=== PATIENT | male | born 1975 | race Caucasian/White ===

== ENCOUNTER 2023-07-06 17:05 | Inpatient (IN) | payer SELFPAY ==
[2023-07-06] VITALS (7 sets, daily range): BP systolic 139–166; BP diastolic 84–118; PULSE 97–111; RESP 18–20; TEMP 36.7–36.8; O2SAT 94–99; BMI 36.6
--- NOTE | 2023-07-06 17:38 | ED.C_ITS ---
HPI - Psych General: Chief Complaint: Psychiatric Symptoms Stated Complaint: SI, ETOH Time Seen by Provider: 07/06/23 17:12 History of Present Illness: Patient presents to the ER with suicidal ideation and a plan. Patient states he just does not want to do it anymore and plans to stab himself in the head. Patient recently quit taking his Effexor cold turkey and his symptoms has became worse. Patient has been treated inpatient before but never through our facility. Review of Systems General: Reports: 10 or more systems reviewed and unremarkable except in HPI and below Physical Exam Const: COMMON NORMALS: no acute distress, average body habitus, patient oriented x3, no limitations, healthy appearing, alert and well nourished HENMT: COMMON NORMALS: normocephalic, atraumatic, hearing grossly normal bilaterally, external ears normal, Normal external nose present, moist oral mucous membranes and oropharynx normal HEAD & SCALP: normocephalic and atraumatic NOSE: Normal external nose present EXTERNAL EAR: Yes external ears normal Neck/C-Spine: COMMON NORMALS: full ROM, no lymphadenopathy, supple, no meningeal signs, no JVD and Thyroid normal THYROID: Thyroid normal Chest: COMMONS NORMALS: normal inspection of the chest and normal palpation of entire chest wall Resp: COMMON NORMALS: normal respiratory effort, No retractions, No use of accessory muscles and clear to auscultation bilaterally AUSCULTATION: clear to auscultation bilaterally Cardio: COMMON NORMALS: no JVD, regular rate, regular rhythm, S1 normal heart sound present, S2 normal heart sound present, No gallops present (Cardio), No clicks present (Cardio) and No murmurs present (Cardio) RATE: regular rate RHYTHM: regular rhythm HEART SOUNDS: S1 normal heart sound present and S2 normal heart sound present Neuro: COMMON NORMALS: patient oriented x3 SENSORIUM/ORIENTATION: Yes alert MENINGEAL SIGNS: Yes no meningeal signs Course Vital Signs: Vital signs: Vital Signs Temperature 98.3 F 07/06/23 17:05 Pulse Rate 104 H 07/06/23 18:10 Respiratory Rate 18 07/06/23 17:05 Blood Pressure 139/84 07/06/23 18:10 Pulse Oximetry 95 07/06/23 18:10 Oxygen Delivery Me thod Room Air 07/06/23 18:10 MDM - Psych Medical Decision Making Patient presented to the ER with suicidal ideation and had been drinking alcohol. As well as quitting his Effexor cold turkey. Patient was worked up in a standard psychiatric fashion. Dr. De Dios was consulted who agreed to take the patient to [facility] for further evaluation and treatment. We will hold the patient down here until we get a repeat alcohol level to make for sure it is stable or improving. Differential Diagnosis Likely suicidal ideation; Unlikely acute psychosis, chronic schizophrenia, bipolar disorder, depression, drug-induced psychotic disorder or acute anxiety Medical Records I reviewed the patient's medical records. Lab Data I reviewed the patient's lab results. 07/06/23 17:53 07/06/23 17:53 Laboratory Results WBC 10.06 10^3/uL (3.29-11.43) 07/06/23 17:53 RBC 5.95 10^6/uL (3.85-5.65) H 07/06/23 17:53 Hgb 17.20 g/dL (11.27-16.99) H 07/06/23 17:53 Hct 52.4 % (37-53) 07/06/23 17:53 MCV 88.1 fl (82-101) 07/06/23 17:53 MCH 28.9 pg (27-33) 07/06/23 17:53 MCHC 32.8 g/dL (30-55) 07/06/23 17:53 RDW 13.8 % (12.1-15.1) 07/06/23 17:53 Plt Count 276 10^3/cmm (157-399) 07/06/23 17:53 MPV 9.3 fL (7.4-10.4) 07/06/23 17:53 Neut % (Auto) 73.9 % 07/06/23 17:53 Lymph % (Auto) 20.1 % 07/06/23 17:53 [place] % (Auto) 4.9 % 07/06/23 17:53 Eos % (Auto) 0.3 % 07/06/23 17:53 Baso % (Auto) 0.6 % 07/06/23 17:53 Neut # (Auto) 7.44 10^3/uL (1.8-7.7) 07/06/23 17:53 Lymph # (Auto) 2.0 10^3/uL (0.8-4.8) 07/06/23 17:53 [place] # (Auto) 0.5 10^3/uL (0.2-0.9) 07/06/23 17:53 Eos # (Auto) 0.0 10^3/uL (0.0-0.8) 07/06/23 17:53 Baso # (Auto) 0.1 10^3/uL (0.0-0.1) 07/06/23 17:53 Nucleated RBC % (auto) 0 % 07/06/23 17:53 Nucleated RBCs # 0.0 /100WBC 07/06/23 17:53 Sodium 142 mmol/L (136-145) 07/06/23 17:53 Potassium 3.4 mmol/L (3.5-5.1) L 07/06/23 17:53 Chloride 103 mmol/L (98-107) 07/06/23 17:53 Carbon Dioxide 22 mmol/L (22-29) 07/06/23 17:53 Anion Gap 20.4 (5-19) H 07/06/23 17:53 BUN 12 mg/dL (6-20) 07/06/23 17:53 Creatinine 0.8 mg/dL (0.7-1.2) 07/06/23 17:53 GFR Calculation 102.3 mL/min (90-130) 07/06/23 17:53 Glucose 114 mg/dL (65-115) 07/06/23 17:53 Calculated Osmolality 295 mOsm/kg (285-295) 07/06/23 17:53 Calcium 8.5 mg/dL (8.5-10.5) 07/06/23 17:53 Total Bilirubin 0.4 mg/dL (0.15-1.2) 07/06/23 17:53 AST 41 U/L (0-40) H 07/06/23 17:53 ALT 50 U/L (0-41) H 07/06/23 17:53 Alkaline Phosphatase 64 U/L (40-130) 07/06/23 17:53 Total Protein 7.5 g/dL (6.6-8.7) 07/06/23 17:53 Albumin 4.0 g/dL (3.5-5.2) 07/06/23 17:53 Globulin 3.5 g/dL (1.3-4.6) 07/06/23 17:53 Urine Color Colorless (Yellow) 07/06/23 17:17 Urine Appearance Clear (CLEAR) 07/06/23 17:17 Urine pH 5 (5-7) 07/06/23 17:17 Ur Specific [place] 1.007 (1.005-1.030) 07/06/23 17:17 Urine Protein Neg (Negative) 07/06/23 17:17 Urine Glucose (UA) Norm (Normal) 07/06/23 17:17 Urine Ketones Negative (Negative) 07/06/23 17:17 Urine Blood Neg (Negative) 07/06/23 17:17 Urine Nitrate Negative (Negative) 07/06/23 17:17 Urine Bilirubin Neg (Negative) 07/06/23 17:17 Urine Urobilinogen Neg mg/dL (Negative) 07/06/23 17:17 Ur Leukocyte Esterase Negative (Negative) 07/06/23 17:17 Salicylates 0.4 mg/dL (3-10) L 07/06/23 17:53 Urine Opiates Screen Negative ng/mL (Negative) 07/06/23 17:17 Acetaminophen < 5.0 ug/mL (10-30) L 07/06/23 17:53 Ur Barbiturates Screen Negative ng/mL (Negative) 07/06/23 17:17 Ur Phencyclidine Scrn Negative ng/mL (Negative) 07/06/23 17:17 Ur Amphetamines Screen Negative ng/mL (Negative) 07/06/23 17:17 U Benzodiazepines Scrn Negative ng/mL (Negative) 07/06/23 17:17 Urine Cocaine Screen Negative ng/mL (Negative) 07/06/23 17:17 U Marijuana (THC) Screen Negative ng/mL (Negative) 07/06/23 17:17 Ethyl Alcohol 260 mg/dL (0-10) H 07/06/23 17:53 No radiology studies performed this visit Discharge Plan Discharge Patient Disposition: Admitted As Inpatient Clinical Impression: Suicidal ideation, Alcohol intoxication Condition: Stable Coding Level of Care Code ED [employer] Operator for Starr Gilliland
[2023-07-06 18:13] LABS: Add Urine Microscopic? NO; Charge for UA Resulting for Rev
[2023-07-06 18:18] LABS: Basophils # 0.1 10^3/uL (0.0-0.1); Basophils % 0.6 %; Eosinophils % 0.3 %; Hematocrit 52.4 % (37-53); Lymphocytes % 20.1 %; Mean Corpuscular HGB Conc 32.8 g/dL (30-55); Mean Corpuscular Hemoglobin 28.9 pg (27-33); Mean Corpuscular Volume 88.1 fl (82-101); Mean Platelet Volume 9.3 fL (7.4-10.4); Monocytes # 0.5 10^3/uL (0.2-0.9); Monocytes % 4.9 %; Neutrophils # 7.44 10^3/uL (1.8-7.7); Neutrophils % 73.9 %; Nucleated Red Blood Cells % 0 %; Platelet Count 276 10^3/cmm (157-399); Red Blood Count 5.95 10^6/uL (3.85-5.65); Red Cell Distribution Width 13.8 % (12.1-15.1); White Blood Count 10.06 10^3/uL (3.29-11.43)
[2023-07-06 18:19] LABS: Bilirubin Urine Neg (Negative); Blood Urine Neg (Negative); Glucose Urine UA Norm (Normal); Ketones Urine Negative (Negative); Leukocyte Esterase Urine Negative (Negative); Nitrate Urine Negative (Negative); Protein Urine Neg (Negative); Specific Gravity, Urine 1.007 (1.005-1.030); Urine Appearance Clear (CLEAR); Urine Color Colorless (Yellow); Urobilinogen Urine Neg (Negative); pH Urine 5 (5-7)
[2023-07-06 18:29] LABS: Alanine Aminotransferase 50 U/L (0-41); Alcohol Level 260 mg/dL (0-10); Alkaline Phosphatase 64 U/L (40-130); Aspartate Amino Transferase 41 U/L (0-40); Blood Urea Nitrogen 12 mg/dL (6-20); Calcium 8.5 mg/dL (8.5-10.5); Carbon Dioxide 22 mmol/L (22-29); Chloride 103 mmol/L (98-107); Globulin 3.5 g/dL (1.3-4.6); Glomerular Filtration Rate 102.3 mL/min (90-130); Glucose 114 mg/dL (65-115); Osmolality Calculated 295 mOsm/kg (285-295); Salicylate 0.4 mg/dL (3-10); Sodium 142 mmol/L (136-145); Total Bilirubin 0.4 mg/dL (0.15-1.2); Total Protein 7.5 g/dL (6.6-8.7)
[2023-07-06 18:29] LABS: Amphetamines Screen Urine Negative (Negative); Barbiturates Screen Urine Negative (Negative); Benzodiazepines Screen Urine Negative (Negative); Cocaine Screen Urine Negative (Negative); Opiate Screen Urine Negative (Negative); PCP Screen Urine Negative (Negative); THC Screen Urine Negative (Negative)
[2023-07-06 18:30] LABS: Acetaminophen < 5.0 ug/mL (10-30); Anion Gap 20.4 (5-19); Potassium 3.4 mmol/L (3.5-5.1)
[2023-07-06 21:04] LABS: Alcohol Level 211 mg/dL (0-10)
[2023-07-06] MEDS: LORazepam 2 mg Tablet PO (22:31)
[2023-07-07 06:00] VITALS: BP 170/112; PULSE 98; RESP 18; TEMP 36.9; O2SAT 95
--- NOTE | 2023-07-07 07:25 | W.PM.NPUH&PS ---
Providers/Chief Complaint Admitting Physician: Kyle De Dios MD Chief Complaint: SI, ETOH HPI NPU History of Present Illness Piter Nelson is a 48 year old male who presented to the emergency department with the following report: Chief Complaint: Psychiatric Symptoms Stated Complaint: SI, ETOH Time Seen by Provider: 07/06/23 17:12 History of Present Illness: Patient presents to the ER with suicidal ideation and a plan. Patient states he just does not want to do it anymore and plans to stab himself in the head. Patient recently quit taking his Effexor cold turkey and his symptoms has became worse. Patient has been treated inpatient before but never through our facility. He was admitted to the psychiatric unit for definitive treatment of those issues. He presents today unknown to this consumer loan underwriter from any previous interactions in active withdrawal from alcohol having presented last night with a BAL of 260. He presents today as a unwilling historian. Greeting this consumer loan underwriter with I said I am not hungry. After introducing myself to this gentleman he answers every question with anger and vitreal as if he was being bothered and eventually said he just wants to rest and get his medication restarted. We discussed his previous medication being Effexor XR and he had reported to the emergency department that he had stopped the cold turkey. He acknowledges that he has a drinking problem but with not going any explanation about how long or any sequela from his drinking in his life. We discussed the risks, benefits and alternatives of restarting the Effexor XR at 37.5 mg given he could not give any timeframe or doses. We agreed that if we could identify the dosage and make adjustments at that time. He understood and agreed to proceed as is documented in this note. We agreed that Dr. Gibbs would come tomorrow and try to get a better sense of what was going on maybe when he was in less discomfort and withdrawal. Meds NPU Home Medications Medication Instructions Recorded Confirmed Last Taken Type No Known Home Medications 07/06/23 07/06/23 Unknown History Allergies Allergy/AdvReac Type Severity Reaction Status Date / Time No Known Allergies Allergy Verified 07/06/23 17:14 Mental Status Exam MSE Comments: This is an obese white male in hospital scrubs with limited grooming and eye contact. No abnormal movements except for psychomotor retardation.. Uncooperative with exam and moderate distress. Speech was limited and normal rate increased volume. Mood described as tired, affect irritable. Thought process organized. Thought content: Patient did not report any suicidal or homicidal ideation, there were no delusions reported or noted, he did not appear to be attending to internal stimuli. Attention and concentration were limited and memory was mostly unreliable but none were formally tested. He is alert and oriented times person and place. Insight, judgment and impulse control impaired. Vitals/I&O/Wt Last Vital Signs Temp 98.1 F 07/06/23 22:07 Pulse 104 H 07/06/23 22:07 Resp 20 H 07/06/23 22:07 BP 154/100 07/06/23 22:07 Pulse Ox 98 07/06/23 22:07 O2 Del Method Room Air 07/06/23 22:08 Weight last 48 hrs Weight 99.79 kg Data NPU 07/06/23 17:53 07/06/23 17:53 A&P Assessment and plan (1) Suicidal ideation: (2) Alcohol intoxication: Qualifiers: Complication of substance-induced condition: uncomplicated Qualified Code(s): F10.920 - Alcohol use, unspecified with intoxication, uncomplicated (3) Depression: (4) Alcohol use disorder, severe, dependence: (5) Alcohol withdrawal: Plan This is a 48-year-old, white male, with a history of depression and alcohol use/addiction who presents with alcohol withdrawal and a desire to get back on my medication. 1. Identify previous medications and restart at appropriate dose. 2. Encourage individual, group, and milieu therapy. 3. Continue q-15-minute checks for safety. 4. Recommend sober living treatment at the highest level of care to which the patient is willing to commit. Involuntary Hold Information 96 Hour Hold: 96 Hour Involuntary Admission: No Attestations NPU Medical Necessity Statement*: Inpatient hospitalization is medically necessary and the clinically appropriate intervention, at this time. We will monitor medications and make changes as indicated. Patient will be in the hospital for over two midnights. Likely length of stay is three to five days. Coding Level of Care Code Acute Code for [facility] Diagnoses Suicidal ideation R45.851 Alcohol intoxication F10.920 Complication of substance-induced condition: uncomplicated Depression F32.A Alcohol use disorder, severe, dependence F10.20 Alcohol withdrawal F10.939
[2023-07-07] MEDS: multivitamin therapeutic Tablet 1 TAB PO (09:47)
[2023-07-07] MEDS: folic acid 1 mg Tablet PO (09:47)
[2023-07-07] MEDS: thiamine 100 mg Tablet PO (09:47)
[2023-07-07] MEDS: LORazepam 2 mg Tablet PO ×2 (09:52→17:45)
[2023-07-07 13:18] VITALS: BP 166/115; PULSE 92; RESP 14; TEMP 36.9; O2SAT 98
[2023-07-07] MEDS: nicotine 2 mg Gum BUCCAL ×2 (17:45→20:46)
[2023-07-07 19:49] VITALS: BP 146/98; PULSE 87; RESP 16; TEMP 36.8; O2SAT 99
[2023-07-07] MEDS: trazodone 50 mg Tablet PO (20:12)
[2023-07-08 06:00] VITALS: BP 144/94; PULSE 91; RESP 16; TEMP 36.6; O2SAT 98
[2023-07-08] MEDS: folic acid 1 mg Tablet PO (09:47)
[2023-07-08] MEDS: multivitamin therapeutic Tablet 1 TAB PO (09:47)
[2023-07-08] MEDS: venlafaxine ER (24HR) 37.5 mg Capsule PO (09:47)
[2023-07-08] MEDS: thiamine 100 mg Tablet PO (09:47)
[2023-07-08 14:00] VITALS: BP 154/111; PULSE 82; RESP 14; TEMP 36.9; O2SAT 97
[2023-07-08] MEDS: LORazepam 2 mg Tablet PO (15:19)
[2023-07-08] MEDS: nicotine 2 mg Gum BUCCAL (17:07)
--- NOTE | 2023-07-08 17:56 | P.NPUPN_ITS ---
Subjective NPU Subjective: 48-year-old white male with alcohol dependence and depression admitted with suicidal ideation. The patient had reported that he had been taking up to 150 mg of Effexor and continued to report feeling terrible . He reported difficulties with sleep. He had reported a history of alcohol related withdrawal symptoms. He reported feeling extremely irritable. He had reported some feelings of hopelessness and endorsed considerable anxiety as well. She reported that he had wanted to stop drinking and did believe that it was a problem. Mental Status Exam MSE Comments: This is an obese white male in hospital scrubs with limited grooming and poor eye contact with a mundo complexion. No abnormal movements other than moderate psychomotor retardation.. He was cooperative on exam today. His speech was slurred with normal rate and volume. Mood described as terrible. His affect was irritable and mood congruent. Thought process organized. Thought content: Patient denied homicidal and denied suicidal ideation. There was no evidence of delusional thinking. He did not appear to be attending to internal stimuli. Attention and concentration were limited and memory was mostly unreliable but none were formally tested. He is alert and oriented times person and place. Insight, judgment and impulse control were poor. Vitals/I&O/Wt Last Vital Signs Temp 98.4 F 07/08/23 14:00 Pulse 82 07/08/23 14:00 Resp 14 07/08/23 14:00 BP 154/111 07/08/23 14:00 Pulse Ox 97 07/08/23 14:00 O2 Del Method Room Air 07/08/23 06:00 Weight last 48 hrs Weight 99.564 kg Data NPU 07/06/23 17:53 07/06/23 17:53 A&P Assessment and plan (1) Suicidal ideation: (2) Alcohol intoxication: Qualifiers: Complication of substance-induced condition: uncomplicated Qualified Code(s): F10.920 - Alcohol use, unspecified with intoxication, uncomplicated (3) Depression: (4) Alcohol use disorder, severe, dependence: (5) Alcohol withdrawal: Plan This is a 48-year-old, white male, with a history of depression and alcohol use/addiction who presents with alcohol withdrawal and a desire to get back on my medication. 1. Increase Effexor xr to 75mg daily, add Seroquel 100mg at night as previously prescribed. 2. Encourage individual, group, and milieu therapy. 3. Continue q-15-minute checks for safety. 4. Recommend sober living treatment at the highest level of care to which the patient is willing to commit. 5. RIANNA gallego. Involuntary Hold Information 96 Hour Hold: 96 Hour Involuntary Admission: No Attestations NPU Medical Necessity Statement*: Inpatient hospitalization is medically necessary and the clinically appropriate intervention, at this time. We will monitor medications and make changes as indicated. His likely length of stay is three to five days. Coding Level of Care Code Acute Code for [facility] Fwd Diagnoses Suicidal ideation R45.851 Alcohol intoxication F10.920 Complication of substance-induced condition: uncomplicated Depression F32.A Alcohol use disorder, severe, dependence F10.20 Alcohol withdrawal F10.939
[2023-07-08] MEDS: quetiapine 100 mg Tablet PO (19:45)
[2023-07-08 19:58] VITALS: BP 156/97; PULSE 98; RESP 18; TEMP 36.9; O2SAT 98
[2023-07-09 06:00] VITALS: BP 137/88; PULSE 109; RESP 18; O2SAT 98
[2023-07-09] MEDS: venlafaxine ER (24HR) 37.5 mg Capsule 75 MG PO (08:17)
[2023-07-09] MEDS: multivitamin therapeutic Tablet 1 TAB PO (08:17)
[2023-07-09] MEDS: thiamine 100 mg Tablet PO (08:17)
[2023-07-09] MEDS: folic acid 1 mg Tablet PO (08:18)
--- NOTE | 2023-07-09 10:49 | PC.OT ---
OT EVALUATION ATTEMPTED. PER NURSING; PATIENT IS VERY IRRITABLE AND WISHES TO BE LEFT ALONE.
[2023-07-09 14:00] VITALS: RESP 16
--- NOTE | 2023-07-09 17:29 | W.PM.NPUPNS ---
Subjective NPU Subjective: 48-year-old white male with alcohol dependence and depression admitted with suicidal ideation. The patient had been minimally cooperative on interview today. He had continue to report having problems with his pain and continue to report feeling depressed. He reported some difficulties with sleep last night despite receiving Seroquel. He had no clear withdrawal symptoms from alcohol measured on CIWA. The patient continued to report his mood is awful. Patient had been verbally aggressive on the unit and required significant redirection. He had denied wanting any help regarding his alcohol consumption at this time. The patient endorsed homelessness. Mental Status Exam MSE Comments: This is an obese white male in hospital scrubs with limited grooming and poor eye contact with a mundo complexion. No abnormal movements other than psychomotor agitation. He was minimally cooperative on exam today. His speech was slurred with normal rate and volume. Mood described as awful. His affect was irritable and dysphoric Thought process organized. Thought content: Patient denied homicidal and denied suicidal ideation. There was no evidence of delusional thinking. He did not appear to be attending to internal stimuli. Attention and concentration were limited and memory was mostly unreliable but none were formally tested. He is alert and oriented times person and place. Insight, judgment and impulse control were poor. Vitals/I&O/Wt Last Vital Signs Temp 98.4 F 07/08/23 19:58 Pulse 109 H 07/09/23 06:00 Resp 16 07/09/23 14:00 BP 137/88 07/09/23 06:00 Pulse Ox 98 07/09/23 06:00 O2 Del Method Room Air 07/08/23 19:58 Weight last 48 hrs Weight 99.564 kg Data NPU 07/06/23 17:53 07/06/23 17:53 A&P Assessment and plan (1) Suicidal ideation: (2) Alcohol intoxication: Qualifiers: Complication of substance-induced condition: uncomplicated Qualified Code(s): F10.920 - Alcohol use, unspecified with intoxication, uncomplicated (3) Depression: (4) Alcohol use disorder, severe, dependence: (5) Alcohol withdrawal: Plan This is a 48-year-old, white male, with a history of depression and alcohol use/addiction who presents with alcohol withdrawal and a desire to get back on my medication. 1. Continue Effexor xr to 75mg daily, increase Seroquel to 200mg at night. 2. Encourage individual, group, and milieu therapy. 3. Continue q-15-minute checks for safety. 4. Recommend sober living treatment at the highest level of care to which the patient is willing to commit. 5. RIANNA proctej. Involuntary Hold Information 96 Hour Hold: 96 Hour Involuntary Admission: No Attestations NPU Medical Necessity Statement*: Inpatient hospitalization is medically necessary and the clinically appropriate intervention, at this time. We will monitor medications and make changes as indicated. His likely length of stay is three to five days. Coding Level of Care Code Acute Code for [facility] Fwd Diagnoses Suicidal ideation R45.851 Alcohol intoxication F10.920 Complication of substance-induced condition: uncomplicated Depression F32.A Alcohol use disorder, severe, dependence F10.20 Alcohol withdrawal F10.939
[2023-07-09] MEDS: quetiapine 100 mg Tablet 200 MG PO (19:17)
[2023-07-09] MEDS: nicotine 2 mg Gum BUCCAL (19:17)
[2023-07-09 20:05] VITALS: BP 129/93; PULSE 118; RESP 18; TEMP 37.1; O2SAT 95
[2023-07-10 06:00] VITALS: RESP 16
[2023-07-10] MEDS: thiamine 100 mg Tablet PO (09:55)
[2023-07-10] MEDS: folic acid 1 mg Tablet PO (09:55)
[2023-07-10] MEDS: venlafaxine ER (24HR) 37.5 mg Capsule 150 MG PO (09:55)
[2023-07-10] MEDS: nicotine 2 mg Gum BUCCAL ×2 (09:56→16:46)
[2023-07-10] MEDS: venlafaxine ER (24HR) 37.5 mg Capsule 75 MG PO (10:00)
[2023-07-10] MEDS: multivitamin therapeutic Tablet 1 TAB PO (10:00)
[2023-07-10] MEDS: venlafaxine ER (24HR) 75 mg Capsule PO (10:19)
--- NOTE | 2023-07-10 11:48 | PC.OT ---
OT EVAL ATTEMPTED ON 07/10/2023 TWICE; WILL ATTEMPT AGAIN AT LATER TIME.
[2023-07-10 14:00] VITALS: BP 135/91; PULSE 103; RESP 16; TEMP 36.6; O2SAT 97
--- NOTE | 2023-07-10 15:41 | P.NPUPN_ITS ---
Subjective NPU Subjective: 48-year-old white male with alcohol dependence and depression admitted with suicidal ideation. Patient continued to appear irritable and richey while remaining isolative. He continued to state that he was homeless and still suicidal . Patient had reported continued depressed mood and continued to appear unmotivated and apathetic on the milieu. He had complained of significant alcohol withdrawal symptoms and remained on a CIWA. Mental Status Exam MSE Comments: This is an obese surly, demanding, white male in hospital scrubs with poor grooming and poor eye contact with a mundo complexion. No abnormal movements other than psychomotor agitation. He was minimally cooperative on exam today. His speech was slurred with normal rate and volume. Mood described as terrible. His affect was irritable and mood congruent. Thought process organized. Thought content: Patient denied homicidal and denied suicidal ideation. There was no evidence of delusional thinking. He did not appear to be attending to internal stimuli. Attention and concentration were limited and memory was mostly unreliable but none were formally tested. He is alert and oriented times person and place. Insight, judgment and impulse control were poor. Vitals/I&O/Wt Last Vital Signs Temp 98 F 07/10/23 14:00 Pulse 103 H 07/10/23 14:00 Resp 16 07/10/23 14:00 BP 135/91 07/10/23 14:00 Pulse Ox 97 07/10/23 14:00 O2 Del Method Room Air 07/10/23 14:00 Data NPU 07/06/23 17:53 07/06/23 17:53 A&P Assessment and plan (1) Suicidal ideation: (2) Alcohol intoxication: Qualifiers: Complication of substance-induced condition: uncomplicated Qualified Code(s): F10.920 - Alcohol use, unspecified with intoxication, uncomplicated (3) Depression: (4) Alcohol use disorder, severe, dependence: (5) Alcohol withdrawal: Plan This is a 48-year-old, white male, with a history of depression and alcohol use/addiction who presents with alcohol withdrawal and a desire to get back on my medication. 1. Increase Effexor XR to 150mg in am, continue Seroquel at 200mg at night. 2. Encourage individual, group, and milieu therapy. 3. Continue q-15-minute checks for safety. 4. Recommend sober living treatment at the highest level of care to which the patient is willing to commit. 5. PARVIZWA procotol. Involuntary Hold Information 96 Hour Hold: 96 Hour Involuntary Admission: No Attestations NPU Medical Necessity Statement*: Inpatient hospitalization is medically necessary and the clinically appropriate intervention, at this time. We will monitor medications and make changes as indicated. His likely length of stay is three to five days. Coding Level of Care Code Acute Code for [facility] Fwd Diagnoses Suicidal ideation R45.851 Alcohol intoxication F10.920 Complication of substance-induced condition: uncomplicated Depression F32.A Alcohol use disorder, severe, dependence F10.20 Alcohol withdrawal F10.939
[2023-07-10] MEDS: quetiapine 100 mg Tablet 200 MG PO (20:37)
[2023-07-10 20:39] VITALS: BP 150/109; PULSE 89; RESP 17; TEMP 37; O2SAT 96
[2023-07-11 06:00] VITALS: BP 140/101; PULSE 84; RESP 18; O2SAT 97
[2023-07-11] MEDS: nicotine 2 mg Gum BUCCAL ×2 (06:31→13:13)
[2023-07-11] MEDS: venlafaxine ER (24HR) 150 mg Capsule PO (09:26)
[2023-07-11] MEDS: thiamine 100 mg Tablet PO (09:26)
[2023-07-11] MEDS: folic acid 1 mg Tablet PO (09:26)
[2023-07-11] MEDS: multivitamin therapeutic Tablet 1 TAB PO (09:26)
[2023-07-11 14:00] VITALS: BP 149/98; PULSE 84; RESP 16; TEMP 36.6; O2SAT 96
--- NOTE | 2023-07-11 15:23 | W.PM.NPUPNS ---
Subjective NPU Subjective: 48-year-old white male with alcohol dependence and depression admitted with suicidal ideation. The patient had been less irritable on the milieu. He reported no side effects from his medication although he had reported increased blood pressure from higher doses of Effexor in the past on an outpatient basis. He reported struggles with concentration. He had continued to endorse depressed mood. He had reported homelessness and stated that he would be interested in finding a long-term locally. He had reported significant losses over the last year including significant financial stressors. Patient had reported some sleep continuity disruption and complained of low energy. Mental Status Exam MSE Comments: This is an obese white male in hospital scrubs with improved grooming and fair eye contact with a mundo complexion. No abnormal movements other than moderate psychomotor retardation. He was friendly and cooperative on intervew today. His speech was normal in regards to rate rhythm and prosody. Mood described as depressed. His affect was restricted in range and mood congruent. Thought process was linear and organized. Thought content: Patient denied homicidal and denied suicidal ideation. There was no evidence of delusional thinking. He did not appear to be attending to internal stimuli. Attention and concentration were limited and memory was mostly unreliable but none were formally tested. He is alert and oriented times person and place. Insight, judgment and impulse control remained poor. Vitals/I&O/Wt Last Vital Signs Temp 98 F 07/11/23 14:00 Pulse 84 07/11/23 14:00 Resp 16 07/11/23 14:00 BP 149/98 07/11/23 14:00 Pulse Ox 96 07/11/23 14:00 O2 Del Method Room Air 07/11/23 14:00 Data NPU 07/06/23 17:53 07/06/23 17:53 A&P Assessment and plan (1) Suicidal ideation: (2) Depression: (3) Alcohol intoxication: Qualifiers: Complication of substance-induced condition: uncomplicated Qualified Code(s): F10.920 - Alcohol use, unspecified with intoxication, uncomplicated (4) Alcohol use disorder, severe, dependence: (5) Alcohol withdrawal: Plan This is a 48-year-old, white male, with a history of depression and alcohol use/addiction who presents with alcohol withdrawal and a desire to get back on my medication. 1. Increase Effexor XR to 225mg in am, continue Seroquel at 200mg at night. Add Amlodipine for hypertension 5mg daily. 2. Encourage individual, group, and milieu therapy. 3. Continue q-15-minute checks for safety. 4. Recommend sober living treatment at the highest level of care to which the patient is willing to commit. 5. CIWA procotol. Involuntary Hold Information 96 Hour Hold: 96 Hour Involuntary Admission: No Attestations NPU Medical Necessity Statement*: Inpatient hospitalization is medically necessary and the clinically appropriate intervention, at this time. We will monitor medications and make changes as indicated. His likely length of stay is three to five days. Coding Level of Care Code Acute Code for [facility] Fwd Diagnoses Suicidal ideation R45.851 Depression F32.A Alcohol intoxication F10.920 Complication of substance-induced condition: uncomplicated Alcohol use disorder, severe, dependence F10.20 Alcohol withdrawal F10.939
[2023-07-11] MEDS: venlafaxine ER (24HR) 75 mg Capsule PO (16:16)
[2023-07-11] MEDS: amlodipine 5 mg Tablet PO (16:17)
[2023-07-11] MEDS: quetiapine 100 mg Tablet 200 MG PO (20:26)
[2023-07-11 20:32] VITALS: BP 155/105; PULSE 88; RESP 17; TEMP 36.8; O2SAT 95
[2023-07-12 06:00] VITALS: BP 143/99; PULSE 86; RESP 16; TEMP 36.4; O2SAT 98
[2023-07-12] MEDS: multivitamin therapeutic Tablet 1 TAB PO (07:38)
[2023-07-12] MEDS: folic acid 1 mg Tablet PO (07:38)
[2023-07-12] MEDS: venlafaxine ER (24HR) 75 mg Capsule 225 MG PO (07:38)
[2023-07-12] MEDS: amlodipine 5 mg Tablet PO (07:38)
[2023-07-12] MEDS: thiamine 100 mg Tablet PO (07:47)
--- NOTE | 2023-07-12 12:51 | P.NPUPN_ITS ---
Subjective NPU Subjective: 48-year-old white male with alcohol dependence and depression admitted with suicidal ideation. The patient reported depressed mood but states that he was feeling better. He did not have any side effects from alcohol withdrawal today. He reported no feelings of hopelessness or worthlessness. The patient was willing to consider placement in a penitentiary and had an interview yesterday [facility]. Continue to show some evidence of hypertension but reported no symptoms today. Patient reported no suicidal thoughts today. Mental Status Exam MSE Comments: This is an obese white male in hospital scrubs with improved grooming and fair eye contact with a mundo complexion. No abnormal movements other than moderate psychomotor retardation. He was friendly and cooperative on intervew today. His speech was normal in regards to rate rhythm and prosody. Mood described as better. His affect was restricted in range and mood congruent. Thought process was linear and organized. Thought content: Patient denied homicidal and denied suicidal ideation. There was no evidence of delusional thinking. He did not appear to be attending to internal stimuli. Attention and concentration were limited and memory was mostly unreliable but none were formally tested. He is alert and oriented times person and place. Insight, judgment and impulse control remained poor. Vitals/I&O/Wt Last Vital Signs Temp 97.6 F 07/12/23 06:00 Pulse 86 07/12/23 06:00 Resp 16 07/12/23 06:00 BP 143/99 07/12/23 06:00 Pulse Ox 98 07/12/23 06:00 O2 Del Method Room Air 07/12/23 06:00 Data NPU 07/06/23 17:53 07/06/23 17:53 A&P Assessment and plan (1) Suicidal ideation: (2) Depression: (3) Alcohol intoxication: Qualifiers: Complication of substance-induced condition: uncomplicated Qualified Code(s): F10.920 - Alcohol use, unspecified with intoxication, uncomplicated (4) Alcohol use disorder, severe, dependence: (5) Alcohol withdrawal: Plan This is a 48-year-old, white male, with a history of depression and alcohol use/addiction who presents with alcohol withdrawal and a desire to get back on my medication. 1. continue Effexor XR to 225mg in am, continue Seroquel at 200mg at night. Continue Amlodipine for hypertension 5mg daily. 2. Encourage individual, group, and milieu therapy. 3. Continue q-15-minute checks for safety. 4. Recommend sober living treatment at the highest level of care to which the patient is willing to commit. Involuntary Hold Information 96 Hour Hold: 96 Hour Involuntary Admission: No Attestations NPU Medical Necessity Statement*: Inpatient hospitalization is medically necessary and the clinically appropriate intervention, at this time. We will monitor medications and make changes as indicated. His likely length of stay is 1-2 days. Coding Level of Care Code Acute Code for [facility] Diagnoses Suicidal ideation R45.851 Depression F32.A Alcohol intoxication F10.920 Complication of substance-induced condition: uncomplicated Alcohol use disorder, severe, dependence F10.20 Alcohol withdrawal F10.939
[2023-07-12] MEDS: nicotine 2 mg Gum BUCCAL ×2 (13:51→18:10)
[2023-07-12 14:00] VITALS: BP 130/89; PULSE 93; RESP 15; TEMP 37.1; O2SAT 97
[2023-07-12] MEDS: quetiapine 100 mg Tablet 200 MG PO (20:14)
[2023-07-12 20:23] VITALS: BP 143/93; PULSE 101; RESP 20; TEMP 36.9; O2SAT 97
[2023-07-13 06:00] VITALS: RESP 18
[2023-07-13] MEDS: nicotine 2 mg Gum BUCCAL ×2 (06:44→08:36)
[2023-07-13] MEDS: folic acid 1 mg Tablet PO (08:33)
[2023-07-13] MEDS: multivitamin therapeutic Tablet 1 TAB PO (08:33)
[2023-07-13] MEDS: venlafaxine ER (24HR) 75 mg Capsule 225 MG PO (08:33)
[2023-07-13] MEDS: thiamine 100 mg Tablet PO (08:33)
[2023-07-13] MEDS: amlodipine 5 mg Tablet PO (08:33)
--- NOTE | 2023-07-13 10:44 | W.PM.NPUDCS ---
Diagnoses at Discharge Discharge Diagnosis (1) Suicidal ideation: Status: Acute (2) Depression: Status: Acute (3) Alcohol intoxication: Status: Acute Qualifiers: Complication of substance-induced condition: uncomplicated Qualified Code(s): F10.920 - Alcohol use, unspecified with intoxication, uncomplicated (4) Alcohol use disorder, severe, dependence: Status: Acute (5) Alcohol withdrawal: Status: Acute Reason for Visit Reason for Visit: SI, ETOH Brief History: History of Present Illness Piter Nelson is a 48 year old male who presented to the emergency department with the following report: ?Chief Complaint: Psychiatric Symptoms Stated Complaint: SI, ETOH Time Seen by Provider: 07/06/23 17:12 History of Present Illness: ? Patient presents to the ER with suicidal ideation and a plan.? Patient states he just does not want to do it anymore and plans to stab himself in the head.? Patient recently quit taking his Effexor cold turkey and his symptoms has became worse.? Patient has been treated inpatient before but never through our facility. ? He was admitted to the psychiatric unit for definitive treatment of those issues.? He presents today unknown to this account underwriter from any previous interactions in active withdrawal from alcohol having presented last night with a BAL of 260.? He presents today as a unwilling historian.? Greeting this account underwriter with I said I am not hungry. ? After introducing myself to this gentleman he answers every question with anger and vitreal as if he was being bothered and eventually said he just wants to rest and get his medication restarted.? We discussed his previous medication being Effexor XR and he had reported to the emergency department that he had stopped the cold turkey.? He acknowledges that he has a drinking problem but with not going any explanation about how long or any sequela from his drinking in his life.? We discussed the risks, benefits and alternatives of restarting the Effexor XR at 37.5 mg given he could not give any timeframe or doses.? We agreed that if we could identify the dosage and make adjustments at that time.? He understood and agreed to proceed as is documented in this note.? We agreed that Dr. Gibbs would come tomorrow and try to get a better sense of what was going on maybe when he was in less discomfort and withdrawal. Hospital Course Hospital Course During the hospitalization, the patient had routine laboratory studies which were within normal limits except for a few outliers.? Additionally, there was a general medical evaluation which was also within normal limits and revealed no new acute processes.? At the time of discharge, lethality was denied and psychosis was resolving.? Mood and anxiety were well managed.? The patient endorsed a plan to avoid all drugs of abuse and follow up with the aftercare recommendations of the treatment team.? The patient was evaluated and deemed to be absent credible lethality and had achieved the maximum benefit from an inpatient hospitalization, and so was discharged.? The patient was placed on a alcohol withdrawal protocol and required Ativan several times during the initial days of his hospital course. He had previously been on Effexor for depression and anxiety and Effexor was titrated up to a dose of 225 mg daily prior to discharge. He did appear to have a history of hypertension associated with the increase in Effexor XR and amlodipine was initiated at 5 mg daily with some reduction in blood pressure noted. Involuntary Hold Information 96 Hour Hold: 96 Hour Involuntary Admission: No Mental Status Exam MSE Comments: This is an obese white male in hospital scrubs with improved grooming and fair eye contact with a mundo complexion. No abnormal movements other than moderate psychomotor retardation. He was friendly and cooperative on intervew today. His speech was normal in regards to rate rhythm and prosody. Mood described as better. His affect remained slightly restricted. Thought process was linear and organized. Thought content: Patient denied homicidal and denied suicidal ideation. There was no evidence of delusional thinking. He did not appear to be attending to internal stimuli. Attention and concentration appeared better. Recent and remote memory were grossly intact. He is alert and oriented x3. Insight was better and judgment and impulse control were clearly improved on discharge today. Discharge Data Studies Completed and Pending: Laboratory Results WBC 10.06 10^3/uL (3. 29-11.43) 07/06/23 17:53 RBC 5.95 10^6/uL (3.8 5-5.65) H 07/06/23 17:53 Hgb 17.20 g/dL (11.27 -16.99) H 07/06/23 17:53 Hct 52.4 % (37-53) 07/06/23 17:53 MCV 88.1 fl (82-101) 07/06/23 17:53 MCH 28.9 pg (27-33) 07/06/23 17:53 MCHC 32.8 g/dL (30-55) 07/06/23 17:53 RDW 13.8 % (12.1-15.1 ) 07/06/23 17:53 Plt Count 276 10^3/cmm (157 -399) 07/06/23 17:53 MPV 9.3 fL (7.4-10.4) 07/06/23 17:53 Neut % (Auto) 73.9 % 07/06/23 17:53 Lymph % (Auto) 20.1 % 07/06/23 17:53 [place] % (Auto) 4.9 % 07/06/23 17:53 Eos % (Auto) 0.3 % 07/06/23 17:53 Baso % (Auto) 0.6 % 07/06/23 17:53 Neut # (Auto) 7.44 10^3/uL (1.8 -7.7) 07/06/23 17:53 Lymph # (Auto) 2.0 10^3/uL (0.8- 4.8) 07/06/23 17:53 [place] # (Auto) 0.5 10^3/uL (0.2- 0.9) 07/06/23 17:53 Eos # (Auto) 0.0 10^3/uL (0.0- 0.8) 07/06/23 17:53 Baso # (Auto) 0.1 10^3/uL (0.0- 0.1) 07/06/23 17:53 Nucleated RBC % (a uto) 0 % 07/06/23 17:53 Nucleated RBCs # 0.0 /100WBC 07/06/23 17:53 Sodium 142 mmol/L (136-1 45) 07/06/23 17:53 Potassium 3.4 mmol/L (3.5-5 .1) L 07/06/23 17:53 Chloride 103 mmol/L (98-10 7) 07/06/23 17:53 Carbon Dioxide 22 mmol/L (22-29) 07/06/23 17:53 Anion Gap 20.4 (5-19) H 07/06/23 17:53 BUN 12 mg/dL (6-20) 07/06/23 17:53 Creatinine 0.8 mg/dL (0.7-1. 2) 07/06/23 17:53 GFR Calculation 102.3 mL/min (90- 130) 07/06/23 17:53 Glucose 114 mg/dL (65-115 ) 07/06/23 17:53 Calculated Osmolal ity 295 mOsm/kg (285- 295) 07/06/23 17:53 Calcium 8.5 mg/dL (8.5-10 .5) 07/06/23 17:53 Total Bilirubin 0.4 mg/dL (0.15-1 .2) 07/06/23 17:53 AST 41 U/L (0-40) H 07/06/23 17:53 ALT 50 U/L (0-41) H 07/06/23 17:53 Alkaline Phosphata se 64 U/L (40-130) 07/06/23 17:53 Total Protein 7.5 g/dL (6.6-8.7 ) 07/06/23 17:53 Albumin 4.0 g/dL (3.5-5.2 ) 07/06/23 17:53 Globulin 3.5 g/dL (1.3-4.6 ) 07/06/23 17:53 Urine Color Colorless (Yello w) 07/06/23 17:17 Urine Appearance Clear (CLEAR) 07/06/23 17:17 Urine pH 5 (5-7) 07/06/23 17:17 Ur Specific Gravit y 1.007 (1.005-1.0 30) 07/06/23 17:17 Urine Protein Neg (Negative) 07/06/23 17:17 Urine Glucose (UA) Norm (Normal) 07/06/23 17:17 Urine Ketones Negative (Negati ve) 07/06/23 17:17 Urine Blood Neg (Negative) 07/06/23 17:17 Urine Nitrate Negative (Negati ve) 07/06/23 17:17 Urine Bilirubin Neg (Negative) 07/06/23 17:17 Urine Urobilinogen Neg mg/dL (Negati ve) 07/06/23 17:17 Ur Leukocyte Elise ase Negative (Negati ve) 07/06/23 17:17 Salicylates 0.4 mg/dL (3-10) L 07/06/23 17:53 Urine Opiates Scre en Negative ng/mL (N egative) 07/06/23 17:17 Acetaminophen < 5.0 ug/mL (10-3 0) L 07/06/23 17:53 Ur Barbiturates Sc reen Negative ng/mL (N egative) 07/06/23 17:17 Ur Phencyclidine S crn Negative ng/mL (N egative) 07/06/23 17:17 Ur Amphetamines Sc reen Negative ng/mL (N egative) 07/06/23 17:17 U Benzodiazepines Scrn Negative ng/mL (N egative) 07/06/23 17:17 Urine Cocaine Scre en Negative ng/mL (N egative) 07/06/23 17:17 U Marijuana (THC) Screen Negative ng/mL (N egative) 07/06/23 17:17 Ethyl Alcohol 211 mg/dL (0-10) H 07/06/23 20:10 Vitals: Last Vital Signs Temp 98.5 F 07/12/23 20:23 Pulse 101 H 07/12/23 20:23 Resp 18 07/13/23 06:00 BP 143/93 07/12/23 20:23 Pulse Ox 97 07/12/23 20:23 O2 Del Method Room Air 07/12/23 14:00 Discharge Plan Discharge Patient Disposition: Home Condition: Stable Prescriptions: New amlodipine 5 mg Tablet 5 mg PO DAILY 30 Days Qty: 30 1RF folic acid 1 mg Tablet 1 mg PO DAILY 30 Days Qty: 30 1RF Thera 400 mcg Tablet 1 tab PO DAILY 30 Days Qty: 30 1RF quetiapine 100 mg Tablet 200 mg PO BEDTIME 30 Days Qty: 60 1RF Vitamin B-1 (mononitrate) 100 mg Tablet 100 mg PO DAILY 30 Days Qty: 30 1RF venlafaxine 75 mg Capsule,Extended Release 24hr 225 mg PO DAILY 30 Days Qty: 90 1RF Discharge Orders: Discharge Order (Routine); Ordered 07/13/23 Ordered By: Kevin Gibbs Referrals: [facility] [Other] - 07/13/23 [facility] [Outside] - 07/16/23 11:30 am (Initial appointment with Chayo Nguyen on 07/16/23 11:30 AM. ) Discharge Diet: Usual diet Discharge Activity: Resume usual activity Patient Instructions: Opioid Safety Discharge Attestations NPU Time Spent in Discharge Care*: less than 30 min Coding Level of Care Code Acute Chg FW DC note Diagnoses Suicidal ideation R45.851 Depression F32.A Alcohol intoxication F10.920 Complication of substance-induced condition: uncomplicated Alcohol use disorder, severe, dependence F10.20 Alcohol withdrawal F10.939
[2023-07-13 10:57] VITALS: RESP 18
== END 2023-07-13 11:30 | disposition home or self-care (01) | DRG 897 ==
LOC: ER 18:29 → NP 21:21
PROVIDERS: Admitting Provider Psychiatry & Neurology Psychiatry; Emergency Provider Emergency Medicine; Visit Provider Psychiatry & Neurology Psychiatry
DX: F10.239 Alcohol dependence with withdrawal, unspecified (principal); R45.851 Suicidal ideations; Z59.02 Unsheltered homelessness; F10.229 Alcohol dependence with intoxication, unspecified; Y90.8 Blood alcohol level of 240 mg/100 ml or more; F32.A Depression, unspecified
CPT/HCPCS: 36415; 80053; 80306; 80307; 81003; 85025; 97150; 97165; 99285

== ENCOUNTER 2023-07-22 21:24 | Inpatient (IN) | payer SELFPAY ==
[2023-07-22 21:24] VITALS: BP 152/101; PULSE 124; RESP 18; TEMP 36.7; O2SAT 95; BMI 34.4
--- NOTE | 2023-07-22 21:44 | ED.C_ITS ---
Documented by User: Jann Wright DO 07/22/23 23:22 HPI - Psych 2 General: Chief Complaint: Psychiatric Symptoms Stated Complaint: SI Time Seen by Provider: 07/22/23 21:34 Source: patient Mode of arrival: EMS (police support) Limitations: no limitations History of Present Illness: This patient was transported by EMS to the emergency department after endorsing suicidality this evening. He apparently was in the [facility] and was noted to be expressing symptoms of sadness and there was concern raised about potential for self-harm. Police department arrived on scene and the patient admitted to the police reserves commander that he was contemplating suicide and actually had a knife that he had a plan to stab himself in the head with. The please officer then disarmed Mr. Nelson and contacted EMS and he was transported to the emergency department. A affidavit in support of 96-hour hold is provided by the police reserves commander. The patient is admitting that he is sad and depressed and does not want to live anymore. He is not currently employed and has no aspects that provide him a andrei in life. He does admit to drinking alcohol. He states he was previously prescribed Effexor but is not taking any of his prescribed mental health medications currently. He states he has family in [facility] but he does not see them. complaint: suicidal ideation and feels depressed History of same: Yes Associated symptoms: Reports depression and suicidal ideation; Deny auditory hallucinations or visual hallucinations Review of Systems 2 Const: Denies: fever(s) or chills Eyes: Denies: change in vision ENMT: Denies: throat pain or odynophagia Card: Denies: chest pain, palpitations, syncope or pre-syncope Resp: Denies: dyspnea, productive cough or non-productive cough GI: Denies: abdominal pain, nausea, vomiting or diarrhea : Denies: flank pain, difficulty urinating or dysuria Musc: Denies: neck pain, back pain or extremity pain Skin/Breast: Denies: rash Neuro: Denies: headache(s), numbness in extremities or weakness in extremities Psych: Reports: depression, loss of interest and suicidal ideation; Denies: visual hallucinations or auditory hallucinations Endo: Denies: polyuria or polydipsia PFSH ED 2 PFSH: Medical History (Updated 07/22/23 @ 23:13 by Jann Wright DO) Psychiatric care Physical Exam 2 Narrative: EXAM NARRATIVE: Patient initially makes eye contact but then tended to avoid direct eye contact. He does answer questions and is cooperative. Const: COMMON NORMALS: average body habitus, patient oriented x3, no limitations and alert GENERAL APPEARANCE: cooperative HENMT: COMMON NORMALS: normocephalic and moist oral mucous membranes HEAD & SCALP: normocephalic Eye: COMMON NORMALS: Equal, round and reactive pupils present and conjunctivae normal CONJUNCTIVA: Yes conjunctivae normal PUPIL: Yes Equal, round and reactive pupils present Neck/C-Spine: COMMON NORMALS: full ROM Chest: COMMONS NORMALS: normal inspection of the chest Resp: COMMON NORMALS: normal respiratory effort, No retractions and No use of accessory muscles EFFORT & INSPECTION: Yes able to speak in complete sentences Cardio: COMMON NORMALS: regular rate and Peripheral pulses 2+ throughout R ATE: regular rate PERIPHERAL PULSES: Peripheral pulses 2+ throughout GI: COMMON NORMALS: Normal to inspection, nondistended, normoactive bowel sounds present Back/Pelvis: COMMON NORMALS: thoracic and lumbar spine normal to inspection and thoraco-lumbar ROM normal Extremity: COMMON NORMALS: normal to inspection, full ROM and capillary refill normal Neuro: COMMON NORMALS: patient oriented x3, moves all extremities, no focal motor deficits and no sensory deficits noted SENSORIUM/ORIENTATION: Yes alert CRANIAL NERVES: Yes CN normal except as noted GAIT: Yes Normal gait present Psych: APPEARANCE: Yes grossly normal ATTITUDE: Yes Withdrawn affect present ACTIVITY/MOTOR BEHAVIOR: Yes Avoids eye contact (attititude/behavior) SPEECH: Yes soft MOOD & AFFECT: Yes depressed mood and Yes Flat affect present THOUGHT PROCESS: Circumstantial thought process present THOUGHT CONTENT: Yes Suicidality present ATTENTION/CONCENTRATION: Yes attention grossly intact MEMORY/COGNITION: Yes memory grossly intact INSIGHT: Fair insight present (Psych) JUDGEMENT: Fair judgement present (Psych) Skin: COMMON NORMALS: no rashes or lesions noted and no wounds GENERAL SKIN EXAM: no rashes or lesions noted Course 2 Reevaluation(s): Reevaluation #1: Patient has a CO2 of 17 with mild depressed potassium of 3.2. Void and check a VBG, plan on oral replacement of potassium, fluid bolus and serum ketones. This might be related to occult alcoholic ketoacidosis. Subsequent VBG, serum ketones are reassuring without any evidence of acidosis. We will continue with the plan with fluid replacement, potassium replacement and recheck a basic chemistry prior to admitting to psychiatric care unit. This was discussed with overnight hospitalist to recheck basic metabolic profile and then plan for admission. Time: 22:57 Vital Signs: Vital signs: Vital Signs Temperature 98.5 F 07/23/23 02:27 Pulse Rate 110 H 07/23/23 02:36 Respiratory Rate 17 07/23/23 02:36 Blood Pressure 127/75 07/23/23 02:36 Pulse Oximetry 95 07/23/23 02:36 Oxygen Delivery Me thod Room Air 07/23/23 02:58 MDM - Psych Medical Decision Making This patient with a history of depression who has not been taking his mental health medications for an unknown specified period of time presented to the emergency department with suicidal ideation and with a plan that was thwarted by police reserves commander who provided affidavit and support of mental health hold. The patient had a clinical evaluation that was strongly supportive of depression with suicidality. Patient does not have any obvious physical stigmata or clinical stigmata that would suggest a preclusion to admission to the neuropsychiatric unit for further evaluation on a 96-hour evaluation. Differential Diagnosis Likely suicidal ideation and depression Medical Records I reviewed the patient's medical records. Lab Data I reviewed the patient's lab results. 07/22/23 22:19 07/23/23 00:44 Laboratory Results WBC 11.39 10^3/uL (3.29-11.43) 07/22/23 22:19 RBC 5.89 10^6/uL (3.85-5.65) H 07/22/23 22:19 Hgb 17.10 g/dL (11.27-16.99) H 07/22/23 22:19 Hct 51.9 % (37-53) 07/22/23 22:19 MCV 88.1 fl (82-101) 07/22/23 22:19 MCH 29.0 pg (27-33) 07/22/23 22: MCHC 32.9 g/dL (30-55) 07/22/23 22:19 RDW 14.7 % (12.1-15.1) 07/22/23 22:19 Plt Count 367 10^3/cmm (157-399) 07/22/23 22:19 MPV 9.2 fL (7.4-10.4) 07/22/23 22:19 Neut % (Auto) 82.4 % 07/22/23 22:19 Lymph % (Auto) 13.1 % 07/22/23 22:19 [place] % (Auto) 3.6 % 07/22/23 22:19 Eos % (Auto) 0.0 % 07/22/23 22:19 Baso % (Auto) 0.5 % 07/22/23 22:19 Neut # (Auto) 9.39 10^3/uL (1.8-7.7) H 07/22/23 22:19 Lymph # (Auto) 1.5 10^3/uL (0.8-4.8) 07/22/23 22:19 [place] # (Auto) 0.4 10^3/uL (0.2-0.9) 07/22/23 22:19 Eos # (Auto) 0.0 10^3/uL (0.0-0.8) 07/22/23 22:19 Baso # (Auto) 0.1 10^3/uL (0.0-0.1) 07/22/23 22:19 Nucleated RBC % (auto) 0 % 07/22/23 22:19 Nucleated RBCs # 0.0 /100WBC 07/22/23 22:19 Specimen Type Venous 07/22/23 22:56 Yariel Test N/a 07/22/23 22:56 VBG pH 7.39 (7.32-7.42) 07/22/23 22:56 VBG pCO2 36.1 mmHg (41-51) L 07/22/23 22:56 VBG pO2 62.9 mmHg (25-40) H 07/22/23 22:56 VBG HCO3 21.8 mmol/L (24-28) L 07/22/23 22:56 VBG Base Excess -2.5 mmol/L (-3.0-3.0) 07/22/23 22:56 VBG Hematocrit 52.6 % (42-52) H 07/22/23 22:56 Machine Room Engineer ID [email or web address] 07/22/23 22:56 Sodium 136 mmol/L (136-145) 07/23/23 00:44 Potassium 3.4 mmol/L (3.5-5.1) L 07/23/23 00:44 Chloride 98 mmol/L (98-107) 07/23/23 00:44 Carbon Dioxide 22 mmol/L (22-29) 07/23/23 00:44 Anion Gap 19.4 (5-19) H 07/23/23 00:44 BUN 18 mg/dL (6-20) 07/23/23 00:44 Creatinine 0.7 mg/dL (0.7-1.2) 07/23/23 00:44 GFR Calculation 119.4 mL/min (90-130) 07/23/23 00:44 Glucose 161 mg/dL (65-115) H 07/23/23 00:44 Calculated Osmolality 287 mOsm/kg (285-295) 07/23/23 00:44 Calcium 8.5 mg/dL (8.5-10.5) 07/23/23 00:44 Total Bilirubin 0.4 mg/dL (0.15-1.2) 07/22/23 22:19 AST 27 U/L (0-40) 07/22/23 22:19 ALT 28 U/L (0-41) 07/22/23 22:19 Alkaline Phosphatase 63 U/L (40-130) 07/22/23 22:19 Total Protein 7.2 g/dL (6.6-8.7) 07/22/23 22:19 Albumin 4.0 g/dL (3.5-5.2) 07/22/23 22:19 Globulin 3.2 g/dL (1.3-4.6) 07/22/23 22:19 Salicylates < 0.3 mg/dL (3-10) L 07/22/23 22:19 Acetaminophen < 5.0 ug/mL (10-30) L 07/22/23 22:19 Ethyl Alcohol 248 mg/dL (0-10) H 07/22/23 22:19 Serum Ketones Negative (Negative) 07/22/23 22:19 No radiology studies performed this visit Discharge Plan Discharge Patient Disposition: Admitted As Inpatient Admit Provider: Kyle De Dios Clinical Impression: Suicidal ideation, Depression, Alcohol use disorder Condition: Stable Coding Level of Care Code ED Cotton Picking Machine Operator for Chg Fwd Documented by User: Ramses Oliver DO 07/23/23 06:07 HPI - Psych 2 General: Chief Complaint: Psychiatric Symptoms Stated Complaint: SI Time Seen by Provider: 07/22/23 21:34 PFSH ED 2 PFSH: Medical History (Updated 07/22/23 @ 23:13 by Jann Wright DO) Psychiatric care Course 2 Vital Signs: Vital signs: Vital Signs Temperature 98.5 F 07/23/23 02:27 Pulse Rate 110 H 07/23/23 02:36 Respiratory Rate 17 07/23/23 02:36 Blood Pressure 127/75 07/23/23 02:36 Pulse Oximetry 95 07/23/23 02:36 Oxygen Delivery Me thod Room Air 07/23/23 02:58 MDM - Psych Medical Decision Making This patient with a history of depression who has not been taking his mental health medications for an unknown specified period of time presented to the emergency department with suicidal ideation and with a plan that was thwarted by police reserves commander who provided affidavit and support of mental health hold. The patient had a clinical evaluation that was strongly supportive of depression with suicidality. Patient does not have any obvious physical stigmata or clinical stigmata that would suggest a preclusion to admission to the neuropsychiatric unit for further evaluation on a 96-hour evaluation. Received at shift change. This patient had a low potassium as well as a low bicarbonate level on initial lab testing. He was given IV fluid bolus, and potassium. Potassium has come up appropriately as has his bicarb level. At 819 last evening, his alcohol was 248. It would be well below 200 currently. Patient is been cooperative. He will be admitted, as he is now medically stable Lab Data 07/22/23 22:19 07/23/23 00:44 Laboratory Results WBC 11.39 10^3/uL (3.29-11.43) 07/22/23 22:19 RBC 5.89 10^6/uL (3.85-5.65) H 07/22/23 22:19 Hgb 17.10 g/dL (11.27-16.99) H 07/22/23 22:19 Hct 51.9 % (37-53) 07/22/23 22:19 MCV 88.1 fl (82-101) 07/22/23 22:19 MCH 29.0 pg (27-33) 07/22/23 22:19 MCHC 32.9 g/dL (30-55) 07/22/23 22:19 RDW 14.7 % (12.1-15.1) 07/22/23 22:19 Plt Count 367 10^3/cmm (157-399) 07/22/23 22:19 MPV 9.2 fL (7.4-10.4) 07/22/23 22:19 Neut % (Auto) 82.4 % 07/22/23 22:19 Lymph % (Auto) 13.1 % 07/22/23 22:19 [place] % (Auto) 3.6 % 07/22/23 22:19 Eos % (Auto) 0.0 % 07/22/23 22:19 Baso % (Auto) 0.5 % 07/22/23 22:19 Neut # (Auto) 9.39 10^3/uL (1.8-7.7) H 07/22/23 22:19 Lymph # (Auto) 1.5 10^3/uL (0.8-4.8) 07/22/23 22:19 [place] # (Auto) 0.4 10^3/uL (0.2-0.9) 07/22/23 22:19 Eos # (Auto) 0.0 10^3/uL (0.0-0.8) 07/22/23 22:19 Baso # (Auto) 0.1 10^3/uL (0.0-0.1) 07/22/23 22:19 Nucleated RBC % (auto) 0 % 07/22/23 22:19 Nucleated RBCs # 0.0 /100WBC 07/22/23 22:19 Specimen Type Venous 07/22/23 22:56 Yariel Test N/a 07/22/23 22:56 VBG pH 7.39 (7.32-7.42) 07/22/23 22:56 VBG pCO2 36.1 mmHg (41-51) L 07/22/23 22:56 VBG pO2 62.9 mmHg (25-40) H 07/22/23 22:56 VBG HCO3 21.8 mmol/L (24-28) L 07/22/23 22:56 VBG Base Excess -2.5 mmol/L (-3.0-3.0) 07/22/23 22:56 VBG Hematocrit 52.6 % (42-52) H 07/22/23 22:56 Machine Room Engineer ID [email or web address] 07/22/23 22:56 Sodium 136 mmol/L (136-145) 07/23/23 00:44 Potassium 3.4 mmol/L (3.5-5.1) L 07/23/23 00:44 Chloride 98 mmol/L (98-107) 07/23/23 00:44 Carbon Dioxide 22 mmol/L (22-29) 07/23/23 00:44 Anion Gap 19.4 (5-19) H 07/23/23 00:44 BUN 18 mg/dL (6-20) 07/23/23 00:44 Creatinine 0.7 mg/dL (0.7-1.2) 07/23/23 00:44 GFR Calculation 119.4 mL/min (90-130) 07/23/23 00:44 Glucose 161 mg/dL (65-115) H 07/23/23 00:44 Calculated Osmolality 287 mOsm/kg (285-295) 07/23/23 00:44 Calcium 8.5 mg/dL (8.5-10.5) 07/23/23 00:44 Total Bilirubin 0.4 mg/dL (0.15-1.2) 07/22/23 22:19 AST 27 U/L (0-40) 07/22/23 22:19 ALT 28 U/L (0-41) 07/22/23 22:19 Alkaline Phosphatase 63 U/L (40-130) 07/22/23 22:19 Total Protein 7.2 g/dL (6.6-8.7) 07/22/23 22:19 Albumin 4.0 g/dL (3.5-5.2) 07/22/23 22:19 Globulin 3.2 g/dL (1.3-4.6) 07/22/23 22:19 Salicylates < 0.3 mg/dL (3-10) L 07/22/23 22:19 Acetaminophen < 5.0 ug/mL (10-30) L 07/22/23 22:19 Ethyl Alcohol 248 mg/dL (0-10) H 07/22/23 22:19 Serum Ketones Negative (Negative) 07/22/23 22:19 Discharge Plan Discharge Patient Disposition: Admitted As Inpatient Admit Provider: Kyle De Dios Clinical Impression: Suicidal ideation, Depression, Alcohol use disorder Condition: Stable Coding Level of Care Code ED Cotton Picking Machine Operator for Starr Gilliland
[2023-07-22 22:13] VITALS: PULSE 109
[2023-07-22 22:26] LABS: Basophils # 0.1 10^3/uL (0.0-0.1); Basophils % 0.5 %; Hematocrit 51.9 % (37-53); Lymphocytes # 1.5 10^3/uL (0.8-4.8); Lymphocytes % 13.1 %; Mean Corpuscular HGB Conc 32.9 g/dL (30-55); Mean Corpuscular Volume 88.1 fl (82-101); Mean Platelet Volume 9.2 fL (7.4-10.4); Monocytes # 0.4 10^3/uL (0.2-0.9); Monocytes % 3.6 %; Neutrophils # 9.39 10^3/uL (1.8-7.7); Neutrophils % 82.4 %; Nucleated Red Blood Cells % 0 %; Platelet Count 367 10^3/cmm (157-399); Red Blood Count 5.89 10^6/uL (3.85-5.65); Red Cell Distribution Width 14.7 % (12.1-15.1); White Blood Count 11.39 10^3/uL (3.29-11.43)
[2023-07-22 22:48] LABS: Acetaminophen < 5.0 ug/mL (10-30); Alanine Aminotransferase 28 U/L (0-41); Alkaline Phosphatase 63 U/L (40-130); Anion Gap 26.2 (5-19); Aspartate Amino Transferase 27 U/L (0-40); Blood Urea Nitrogen 20 mg/dL (6-20); Calcium 8.7 mg/dL (8.5-10.5); Carbon Dioxide 17 mmol/L (22-29); Chloride 98 mmol/L (98-107); Globulin 3.2 g/dL (1.3-4.6); Glomerular Filtration Rate 89.3 mL/min (90-130); Glucose 162 mg/dL (65-115); Osmolality Calculated 292 mOsm/kg (285-295); Potassium 3.2 mmol/L (3.5-5.1); Salicylate < 0.3 mg/dL (3-10); Sodium 138 mmol/L (136-145); Total Bilirubin 0.4 mg/dL (0.15-1.2); Total Protein 7.2 g/dL (6.6-8.7)
[2023-07-22 22:58] LABS: Ketone (Acetest) Serum Negative (Negative)
[2023-07-22 23:00] LABS: Alcohol Level 248 mg/dL (0-10)
[2023-07-22 23:01] LABS: Base Excess VBG -2.5 mmol/L (-3.0-3.0); Blood Gas Sample Type Venous; HCO3 VBG 21.8 mmol/L (24-28); PCO2 VBG 36.1 mmHg (41-51); PO2 VBG 62.9 mmHg (25-40); Venous Blood Gas Hematocrit 52.6 % (42-52); pH VBG 7.39 (7.32-7.42)
[2023-07-22] MEDS: lactated ringers 1,000 ML 999 ML IV (23:47)
[2023-07-22] MEDS: potassium chloride ER 20 mEq Tablet 40 MEQ PO (23:48)
--- NOTE | 2023-07-23 00:14 | PC.NURSE ---
Pt served with Copy of 96 Hour Hold rights paperwork by this RN and security. All questions answered.
[2023-07-23 01:09] LABS: Anion Gap 19.4 (5-19); Blood Urea Nitrogen 18 mg/dL (6-20); Calcium 8.5 mg/dL (8.5-10.5); Carbon Dioxide 22 mmol/L (22-29); Chloride 98 mmol/L (98-107); Glomerular Filtration Rate 119.4 mL/min (90-130); Glucose 161 mg/dL (65-115); Osmolality Calculated 287 mOsm/kg (285-295); Potassium 3.4 mmol/L (3.5-5.1); Sodium 136 mmol/L (136-145)
[2023-07-23 02:27] VITALS: BP 141/87; PULSE 119; RESP 18; TEMP 36.9; O2SAT 97
[2023-07-23 02:36] VITALS: BP 127/75; PULSE 110; RESP 17; O2SAT 95
[2023-07-23] MEDS: LORazepam 2 mg Tablet PO ×3 (03:00→14:59)
--- NOTE | 2023-07-23 03:05 | PC.NURSE ---
Pt arrived to [facility] @ 0228 w/RN and security at side. Pt is disheveled, anxious, and exhibiting withdrawal s/sx. CIWA score 12, PRN lorazepam administered. Pt recently discharged from [facility] 07/13/2023, and has been non-compliant with medications since d/c. Pt does not remember when he last took prescribed medications. Pt states he does not see anyone on an outpt basis for psych at this time. Pt admit assessment completed w/o difficulty. Pt is now lying down in room, no respiratory distress present. Will con't to monitor for alcohol w/d symptoms via CIWA scale.
[2023-07-23 06:00] VITALS: BP 145/83; PULSE 122; RESP 18; O2SAT 93
[2023-07-23] MEDS: multivitamin therapeutic Tablet 1 TAB PO (08:49)
[2023-07-23] MEDS: folic acid 1 mg Tablet PO (08:49)
[2023-07-23] MEDS: thiamine 100 mg Tablet PO (08:49)
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
[2023-07-23 13:16] LABS: Amphetamines Screen Urine Negative (Negative); Barbiturates Screen Urine Negative (Negative); Benzodiazepines Screen Urine Positive (Negative); Cocaine Screen Urine Negative (Negative); Opiate Screen Urine Negative (Negative); PCP Screen Urine Negative (Negative); THC Screen Urine Negative (Negative)
[2023-07-23 14:00] VITALS: BP 144/103; PULSE 122; RESP 16; TEMP 36.8; O2SAT 97
[2023-07-23 16:05] LABS: Blood Gas Sample Site VENOUS
[2023-07-23 20:19] VITALS: BP 149/92; PULSE 116; RESP 18; TEMP 37.3; O2SAT 98
[2023-07-23] MEDS: trazodone 50 mg Tablet PO (20:42)
[2023-07-24 06:00] VITALS: RESP 16
[2023-07-24] MEDS: thiamine 100 mg Tablet PO (08:49)
[2023-07-24] MEDS: multivitamin therapeutic Tablet 1 TAB PO (08:49)
[2023-07-24] MEDS: folic acid 1 mg Tablet PO (08:49)
[2023-07-24] MEDS: nicotine 2 mg Gum BUCCAL ×2 (11:50→18:14)
[2023-07-24 14:00] VITALS: BP 162/101; PULSE 94; RESP 18; TEMP 37.2; O2SAT 95
--- NOTE | 2023-07-24 17:28 | W.PM.NPUPNS ---
Subjective NPU Subjective: Patient presented today much more cooperative and appreciative of the work that the social work team has put in. They are working on possibly discharging to [facility] [facility] tomorrow. He is appreciative of the assistance and denied any issues with his medications being restarted. We discussed the risks, benefits and alternatives of restarting Effexor and Seroquel at lesser doses given concerns about adherence and he understood and agreed to proceed as is documented in this note. Mental Status Exam MSE Comments: This is an obese white male in hospital scrubs with limited grooming and eye contact. No abnormal movements except for mild psychomotor retardation. More cooperative with exam in mild distress. Speech was limited and normal rate increased volume. Mood described as better today, affect less irritable. Thought process organized. Thought content: Patient denied suicidal or homicidal ideation, there were no delusions reported or noted, he did not appear to be attending to internal stimuli. Attention and concentration were limited and memory was mostly unreliable but none were formally tested. He is alert and oriented times 3. Insight and judgment are improving and impulse control impaired. Vitals/I&O/Wt Last Vital Signs Temp 99.1 F 07/23/23 20:19 Pulse 116 H 07/23/23 20:19 Resp 16 07/24/23 06:00 BP 149/92 07/23/23 20:19 Pulse Ox 98 07/23/23 20:19 O2 Del Method Room Air 07/23/23 20:19 Weight last 48 hrs Weight 99.79 kg Data NPU 07/22/23 22:19 07/23/23 00:44 A&P Assessment and plan (1) Suicidal ideation: (2) Depression: Qualifiers: Depression Type: major depressive disorder Major depression episode severity: unspecified Major depression recurrence: unspecified whether recurrent (3) Alcohol intoxication: Qualifiers: Complication of substance-induced condition: uncomplicated Qualified Code(s): F10.920 - Alcohol use, unspecified with intoxication, uncomplicated (4) Alcohol use disorder, severe, dependence: (5) Alcohol withdrawal: (6) Suicidal ideation: (7) Malingering: Plan This is a 48-year-old, white male, with a history of depression and alcohol use/addiction who was just discharged from his first stay here 07/13/2023 who returns again with alcohol intoxication and alcohol withdrawal and reports of suicidal ideation with plan resistant to interview. 1. Continue current medication at appropriate doses given him having some missed doses. 2. Encourage individual, group, and milieu therapy. 3. Continue q-15-minute checks for safety. 4. Recommend sober living treatment at the highest level of care to which the patient is willing to commit. Possible discharge to [facility] in [facility] tomorrow morning. 5. Concerns for malingering. Involuntary Hold Information 96 Hour Hold: 96 Hour Involuntary Admission: Yes 96 Hour Hold Ending Date: 07/27/23 96 Hour Hold Ending Time: 00:01 Attestations NPU Medical Necessity Statement*: Inpatient hospitalization is medically necessary and the clinically appropriate intervention, at this time. We will monitor medications and make changes as indicated. Likely length of stay is 2-4 days. Coding Level of Care Code Acute Code for [facility] Fwd Diagnoses Suicidal ideation R45.851 Depression F32.A Depression Type: major depressive disorder Major depression episode severity: unspecified Major depression recurrence: unspecified whether recurrent Alcohol intoxication F10.920 Complication of substance-induced condition: uncomplicated Alcohol use disorder, severe, dependence F10.20 Alcohol withdrawal F10.939 Malingering Z76.5
[2023-07-24] MEDS: amlodipine 5 mg Tablet PO (18:40)
[2023-07-24] MEDS: venlafaxine ER (24HR) 75 mg Capsule PO (18:40)
[2023-07-24 20:31] VITALS: BP 159/112; PULSE 90; RESP 18; O2SAT 98
[2023-07-24] MEDS: trazodone 50 mg Tablet PO (20:40)
[2023-07-24] MEDS: quetiapine 100 mg Tablet PO (20:40)
[2023-07-25 06:00] VITALS: BP 137/83; PULSE 95; RESP 16; TEMP 36.3; O2SAT 98
[2023-07-25] MEDS: amlodipine 5 mg Tablet PO (10:28)
[2023-07-25] MEDS: venlafaxine ER (24HR) 75 mg Capsule PO (10:28)
[2023-07-25] MEDS: thiamine 100 mg Tablet PO (10:28)
[2023-07-25] MEDS: multivitamin therapeutic Tablet 1 TAB PO (10:28)
[2023-07-25] MEDS: folic acid 1 mg Tablet PO (10:28)
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
[2023-07-25 11:45] VITALS: BP 137/83; PULSE 95; RESP 16; TEMP 36.3; O2SAT 98
== END 2023-07-25 13:01 | DRG 885 ==
LOC: ER 07-23 01:00 → NP 07-23 01:53
PROVIDERS: Emergency Medicine; Admitting Provider Psychiatry & Neurology Psychiatry; Emergency Provider Emergency Medicine; Visit Provider Psychiatry & Neurology Psychiatry
DX: F33.1 Major depressive disorder, recurrent, moderate (principal); R45.851 Suicidal ideations; F10.239 Alcohol dependence with withdrawal, unspecified; Z59.02 Unsheltered homelessness; F10.229 Alcohol dependence with intoxication, unspecified; Y90.8 Blood alcohol level of 240 mg/100 ml or more; I10 Essential (primary) hypertension; F41.1 Generalized anxiety disorder; F43.10 Post-traumatic stress disorder, unspecified; G47.00 Insomnia, unspecified; Z56.0 Unemployment, unspecified; Z76.5 Malingerer [conscious simulation]; Z81.8 Family history of other mental and behavioral disorders
CPT/HCPCS: 36415; 80048; 80053; 80306; 80307; 82009; 82803; 85025; 96372; 97150; 97165; 99285; J3411; J7120